=== PATIENT | female | born 1980 | race African-American/Black ===

== ENCOUNTER 2019-02-07 11:46 | Emergency (ER) | payer BC, OTHER ==
[~2019-02-07] VITALS: Ht 152.4 cm; Wt 87.5 kg
[~2019-02-07 11:46] MED LIST: GEODON40 MG ORAL; IBUPROFEN600 MG PO; NORCO 5-325 TA1 EACH ORAL; VALIUM5 MG ORAL; ZOLOFT100 MG ORAL
--- NOTE | 2019-02-07 11:55 | NUR ---
ED Nurse Note: PT WALKED IN TO ER TODAY FROM HOME. AOX4. PT C/O LEFT HAND 4TH DIGIT PAIN, 8/10 AFTER HITTING IT ON HER CAR DOOR X LAST WEEK. NO OBVIOUS DEFORMITY. CIRCULATION AND SENSATION INTACT, CAP REFILL <3 SECONDS, MUSCLE STRENGTH 5/5 AND FULL ROM OF DIGIT BUT WITH PAIN.
[2019-02-07 12:39] VITALS: BP 126/80
--- NOTE | 2019-02-07 12:41 | Diagnostic Imaging Report ---
Indication: left hand pain. Comparison: None Findings: 3 views of the left hand were obtained. Normal alignment is demonstrated. No acute fractures, erosions, or periosteal reaction are seen. Soft tissues are unremarkable. Impression: No acute findings.
[2019-02-07] MEDS ORDERED: IBUPROFEN600 MG ORAL (12:58)
--- NOTE | 2019-02-07 12:58 | Emergency Room Report ---
History of Present Illness General Chief Complaint: Pain Source: Patient Present Illness HPI 38-year-old female presents to the emergency department complaining of 8 out of 10 severity pain to the left ring finger x1 week status post getting her finger stuck in a door. Patient reports some bruising at the base of the left ring finger she reports stiffness and pain exacerbation upon attempts to bend the finger. Patient denies paresthesias or loss of gross motor movements. Patient denies open wounds, erythema or obvious deformity. Patient denies previous injury to the extremity she states she has had mild relief with some over-the- counter Motrin gel tabs. Patient states she continues to have symptoms despite this being over a week old injury. Allergies: Coded Allergies: GUAIFENESIN (Verified Allergy, Severe, 05/28/13) throat closes Patient History Past Medical History: see triage record Past Surgical History: none Pertinent Family History: none Last Menstrual Period: no menses Now: No Immunizations: UTD Reviewed Nursing Documentation: PMH: Agreed; PSxH: Agreed Nursing Documentation-PMH Past Medical History: No History, Except For Hx Hypertension: Yes - pre hypertensive Review of Systems All Other Systems: negative except mentioned in HPI Physical Exam Vital Signs Date Time Temp Pulse Resp B/P (MAP) Pulse Ox O2 Delivery O2 Flow Rate FiO2 02/07/19 11:50 98.1 86 18 131/83 (99) 96 Room Air Sp02 EP Interpretation: reviewed, normal General Appearance: no apparent distress, alert, GCS 15, non-toxic Head: normocephalic, atraumatic Eyes: bilateral eye normal inspection, bilateral eye PERRL ENT: hearing grossly normal, normal voice Neck: full range of motion Respiratory: lungs clear, normal breath sounds, speaking full sentences Cardiovascular #1: regular rate, rhythm, normal capillary refill Musculoskeletal: back normal, gait/station normal, normal range of motion, tender - MTP joint of the left ring finger. mild bruising noted laterally. some increased in laxity on exam. no obvious deformity, NVI. Neurologic: alert, oriented x3, responsive, motor strength/tone normal, sensory intact, speech normal, grossly normal Psychiatric: judgement/insight normal Medical Decision Making PA Attestation Dr. Schneider Is my supervising Physician whom patient management has been discussed with. Diagnostic Impression: Primary Impression: Sprain of finger, left Qualified Codes: S63.655A - Sprain of metacarpophalangeal joint of left ring finger, initial encounter ER Course 38-year-old female presents to the emergency department complaining of 8 out of 10 severity pain to the left ring finger x1 week status post getting her finger stuck in a door. Patient reports some bruising at the base of the left ring finger she reports stiffness and pain exacerbation upon attempts to bend the finger. Patient denies paresthesias or loss of gross motor movements. Patient denies open wounds, erythema or obvious deformity. Patient denies previous injury to the extremity she states she has had mild relief with some over-the- counter Motrin gel tabs. Patient states she continues to have symptoms despite this being over a week old injury. Ddx considered but are not limited to Fracture, dislocation, contusion, Sprain/ Strain/Spasm. Vital signs: are WNL, pt. is afebrile H&PE are most consistent with musculoskeletal injury will perform imaging to r/ o fractures/dislocations. ORDERS: - X-ray Left Hand 3 views - negative for fx, Dislocation, or significant soft tissue injury, per preliminary read in ED, and signed by DAVID Zapata , my supervising physician has reviewed, and agrees with my interpretation. ED INTERVENTIONS: - 600mg IBU PO -- Finger Splint applied to the left ring finger by neurodiagnostic technician. Pt. remains neurovascularly intact. DISCHARGE: At this time pt. is stable for d/c to home. Will provide printed patient care instructions, and any necessary prescriptions. Care plan and follow up instructions have been discussed with the patient prior to discharge. Other X-Ray Diagnostic Results Other X-Ray Diagnostic Results : X-Ray ordered: Left Hand # of Views/Limited Vs Complete: 3 View Indication: Pain EP Interpretation: Yes DAVID Xray: Interpretation reviewed, by supervising MD, and agrees with findings. Interpretation: no dislocation, no soft tissue swelling, no fractures Impression: No acute disease Electronically Signed by: Sadie Zapata PA-C Last Vital Signs Date Time Temp Pulse Resp B/P (MAP) Pulse Ox O2 Delivery O2 Flow Rate FiO2 02/07/19 12:39 98.2 84 17 126/80 99 Room Air Status: improved Disposition: HOME, SELF-CARE Condition: Stable Patient Instructions: Finger Sprain, [id number] Additional Instructions: Take medications as directed. Follow up with a Primary Care Provider in 3-5 days, even if your symptoms have resolved. --Please review list of primary care clinics, if you do not already have a primary care provider Return sooner to ED if new symptoms occur, or current symptoms become worse. - Please note that this Emergency Department Report was dictated using [employer] technology software, occasionally this can lead to erroneous entry secondary to interpretation by the dictation equipment. Sadie Zapata Feb 07, 2019 12:58
[2019-02-07 12:59] VITALS: BP 124/82
--- NOTE | 2019-02-07 12:59 | NUR ---
ED Nurse Note: PT LAYING PEACEFULLY IN BED IN NAD. AOX4. PRESCRIPTIONS AND DISCHARGE PAPERWORK EXPLAINED TO PT. PT VERBALIZES UNDERSTANDING AND ALL QUESTIONS ANSWERED. PRESCRIPTIONS AND DISCHARGE PAPERWORK GIVEN TO PT AND ID WRISTBAND REMOVED. PT WALKED OUT OF ER WITH STEADY GAIT AND ALL BELONGINGS.
== END 2019-02-07 12:59 | disposition home or self-care (01) ==
LOC: EMR 12:35
DX: S63.655A Sprain of metacarpophalangeal joint of left ring finger, initial encounter (principal); Z88.8 Allergy status to other drugs, medicaments and biological substances; W23.0XXA Caught, crushed, jammed, or pinched between moving objects, initial encounter; Y92.9 Unspecified place or not applicable
CPT/HCPCS: 99283